=== PATIENT | male | born 1980 | race African-American/Black ===

== ENCOUNTER 2016-10-04 22:07 | Emergency (ER) | payer MEDICAID ==
[~2016-10-04] VITALS: Ht 182.9 cm; Wt 82.0 kg
[2016-10-05 02:09] VITALS: BP 128/71
== END 2016-10-05 06:27 | disposition home or self-care (01) ==
LOC: ER 22:36
DX: F15.10 Other stimulant abuse, uncomplicated (principal)
CPT/HCPCS: 99283